=== PATIENT | male | born 1950 | race Caucasian/White ===

== ENCOUNTER 2020-09-14 12:48 | Emergency (ER) | payer MEDICARE, OTHER ==
[~2020-09-14 12:48] MED LIST: AMLODIPINE-BEN1 EAC1 PO; BENAZEPRIL HCL20 MG PO; BENAZEPRIL HCL40 MG PO; CARDIZEM CD180 MG PO; CARTIA XT180 MG PO; FLECAINIDE ACET50 MG PO; FLEXERIL10 MG PO; IMBRUVICA420 MG PO; MELOXICAM15 MG PO; NEURONTIN300 MG PO; PERCOCET 5-3251 EACH PO; PRAVASTATIN SOD40 MG PO; PREDNISONE20 MG PO; VALTREX *OUT OF1 GM PO; VALTREX1000 MG PO; XARELTO10 MG PO; XARELTO20 MG PO
== END 2020-09-14 15:10 | disposition home or self-care (01) ==
LOC: FER 12:48
DX: M25.552 Pain in left hip (principal); I10 Essential (primary) hypertension; I48.91 Unspecified atrial fibrillation; Z88.2 Allergy status to sulfonamides; Z79.01 Long term (current) use of anticoagulants; Z85.72 Personal history of non-Hodgkin lymphomas
CPT/HCPCS: 73502

== ENCOUNTER 2020-09-16 07:33 | Day surgery (SDCO) | payer MEDICARE, OTHER ==
[~2020-09-16] VITALS: Ht 182.9 cm; Wt 81.0 kg
[2020-09-16 08:48] LABS: BASOPHIL 0.4 % (0-2); EOSINOPHIL 0.2 % (0-7); HCT 33.8 % (42.0-52.0); HGB 11.2 g/dl (13.2-18.0); LYMPHOCYTE 24.5 % (15-48); MCH 28.9 pg (25.0-31.0); MCHC 33.1 g/dL (32.0-36.0); MCV 87.1 fL (78.0-100.0); MONOCYTE 9.8 % (0-12); MPV 10.4 fL (6.0-9.5); NEUTROPHIL 64.7 % (41-80); NRBC 0; PLT 211 K/uL (150-400); RBC 3.88 M/uL (4.70-6.00); RDW 12.6 % (11.5-14.0)
[2020-09-16 09:14] LABS: ALBUMIN 3.5 g/dL (3.4-5.0); BILIRUBIN - TOTAL 0.5 mg/dL (0.2-1.0); BUN/CREAT RATIO (CALC) 17.1 RATIO; CREATININE 1.05 mg/dL (0.67-1.17); GLOBULIN (CALCULATION) 2.7 g/dL; POTASSIUM 4.4 mmol/L (3.5-5.1); TOTAL PROTEIN 6.2 g/dL (6.4-8.2)
[2020-09-16 09:16] LABS: INR 2.03 (0.9-1.2); PROTHROMBIN TIME 22.1 SECONDS (11.8-13.4); PTT 33.2 SECONDS (24.4-34.7)
[2020-09-17 06:07] LABS: BASOPHIL 0.4 % (0-2); EOSINOPHIL 0.3 % (0-7); HCT 27.9 % (42.0-52.0); HGB 9.4 g/dl (13.2-18.0); LYMPHOCYTE 29.6 % (15-48); MCHC 33.7 g/dL (32.0-36.0); MCV 86.1 fL (78.0-100.0); MONOCYTE 11.7 % (0-12); MPV 10.5 fL (6.0-9.5); NEUTROPHIL 57.5 % (41-80); NRBC 0; PLT 207 K/uL (150-400); RBC 3.24 M/uL (4.70-6.00); RDW 12.2 % (11.5-14.0); WBC 19.5 K/uL (4.0-10.5)
[2020-09-17 06:21] LABS: BUN/CREAT RATIO (CALC) 18.1 RATIO; CREATININE 1.16 mg/dL (0.67-1.17); POTASSIUM 5.3 mmol/L (3.5-5.1)
--- NOTE | 2020-09-17 11:42 | NUR ---
LATE NOTE:0598 THIS RN AND KRISHNA HERRING IN PATIENT'S ROOM TO ASSIST TO BATHROOM. PT WALKED WITH STAFF AND USED CRUTCHES TO GET TO BATHROOM. AFTER SITTING ON COMMODE PT JUMPED UP IN PAIN. HE STARTED TO GO LIMP AND PASS OUT. THIS RN AND TERMINAL WORKER LOWERED PT TO COMMODE AND STAFF ASSIST BUTTON PUSHED. PT BECAME VERY DIAPHORETIC, EYES ROLLED BACK INTO HEAD, TONGUE HANGING OUT OF MOUTH AND STOPPED BREATHING. PT IMMEDIATELY STARTED TO BREATHE WITH STIMULUS. CHICHO Moya RN, QUINTEN Kc RN IN BATHROOM TO ASSIST THIS RN GETTING PT TO WHEELCHAIR AND BACK INTO BED. DR GREENBERG AND ARIC WHITESIDE PRIMARY NURSE AT BEDSIDE. EKG AND FLUID BOLUS ORDERED. PT PUT ON TELEMON TO CLOSELY MONITOR. PT IN STABLE CONDITION.
[2020-09-17 19:19] LABS: HCT 26.6 % (42.0-52.0); HGB 9.1 g/dL (13.2-18.0)
[2020-09-18 06:22] LABS: BASOPHIL 0.7 % (0-2); EOSINOPHIL 2.7 % (0-7); HCT 25.4 % (42.0-52.0); HGB 8.6 g/dl (13.2-18.0); LYMPHOCYTE 38.9 % (15-48); MCH 29.3 pg (25.0-31.0); MCHC 33.9 g/dL (32.0-36.0); MCV 86.4 fL (78.0-100.0); MONOCYTE 11.7 % (0-12); MPV 10.4 fL (6.0-9.5); NEUTROPHIL 45.7 % (41-80); NRBC 0; PLT 173 K/uL (150-400); RBC 2.94 M/uL (4.70-6.00); RDW 12.5 % (11.5-14.0); WBC 14.3 K/uL (4.0-10.5)
[2020-09-18 06:48] LABS: BUN/CREAT RATIO (CALC) 20.4 RATIO; CREATININE 0.93 mg/dL (0.67-1.17); POTASSIUM 4.4 mmol/L (3.5-5.1)
--- NOTE | 2020-09-18 13:00 | NUR ---
PT RECOMMENDED OUTPT THERAPY. PATIENT REQUESTED [facility]. FIRST APPT IS 09/24/20 @ 3:30 P.M. PT IN AGREEMENT. HE STATED THAT HE WAS GIVEN EXCERSIES TO DO BY THERAPY. GAVE PT [facility] PACKET TO HAVE FILLED OUT PROR TO APPT. PT. RECEIVED ROLLING WALKER FROM [facility]. PT. SIGNED CHOICE FORM. PT WAS GIVEN [facility] PHONE NUMBER IN CASE HE WANTED TO CHECK WITH [facility] TO SEE IF THEY HAD ANY EARLIER APPT CANCELLATIONS.
== END 2020-09-18 15:05 | disposition home or self-care (01) ==
LOC: FER 07:33 → FMS 10:37
PROVIDERS: Allergy & Immunology Allergy; Emergency Medicine; ADMIT Internal Medicine
DX: S30.0XXA Contusion of lower back and pelvis, initial encounter (principal); S70.12XA Contusion of left thigh, initial encounter; D62 Acute posthemorrhagic anemia; I48.0 Paroxysmal atrial fibrillation; R55 Syncope and collapse; I48.92 Unspecified atrial flutter; I10 Essential (primary) hypertension; E78.5 Hyperlipidemia, unspecified; C91.10 Chronic lymphocytic leukemia of B-cell type not having achieved remission; R59.0 Localized enlarged lymph nodes; Z79.01 Long term (current) use of anticoagulants; Z88.0 Allergy status to penicillin; Z20.822 Contact with and (suspected) exposure to COVID-19; Z86.79 Personal history of other diseases of the circulatory system
CPT/HCPCS: 36415; 36430; 73700; 73701; 80048; 80053; 82550; 82962; 83605; 85014; 85018; 85025; 85610; 85730; 86850; 86900; 86901; 86922; 93005; 97110; 97161; 97165; 97535; G0378; J1170; J2405; J7120; P9016; Q9967; U0002